=== PATIENT | female | born 1955 | race Caucasian/White ===

== ENCOUNTER → 2020-10-28 | Outpatient (CLI) | payer MEDICARE, OTHER ==
[~2020-10-28] MED LIST: ADVIL200 M1 PO; ALLEGRA ALLERG180 MG PO; LEVAQUIN500 MG PO; LOPRESSOR 25 MG25 MG PO; MOBIC15 MG PO; NITROSTAT0.4 MG SL; PROTONIX40 MG PO; TUMS CHEWABLE PO; TYLENOL W/CODEIN1 E1 PO
== END ==
LOC: HEART 5 10-22 07:30
DX: I20.9 Angina pectoris, unspecified (principal); R93.1 Abnormal findings on diagnostic imaging of heart and coronary circulation
CPT/HCPCS: 78452; A9502; J2785

== ENCOUNTER → 2021-04-23 | Outpatient (CLI) | payer MEDICARE, OTHER | LOC: MAMO 02-14 09:00 | DX: Z12.31 Encounter for screening mammogram for malignant neoplasm of breast (principal) | CPT/HCPCS: 77063; 77067 ==

== ENCOUNTER 2021-12-22 02:14 | Emergency (ER) | payer MEDICARE, OTHER ==
[2021-12-22] MEDS ORDERED: HYDROCODON-ACE1 EAC4 PO (05:12)
== END 2021-12-22 05:40 | disposition home or self-care (01) ==
LOC: ER1 02:14
DX: S22.41XA Multiple fractures of ribs, right side, initial encounter for closed fracture (principal); I10 Essential (primary) hypertension; Z91.040 Latex allergy status; W01.10XA Fall on same level from slipping, tripping and stumbling with subsequent striking against unspecified object, initial encounter; Y92.009 Unspecified place in unspecified non-institutional (private) residence as the place of occurrence of the external cause
CPT/HCPCS: 71101; 73502; 99283